=== PATIENT | female | born 1955 | race Caucasian/White ===

== ENCOUNTER → 2016-12-06 | Outpatient (CLI) | payer BC, OTHER ==
--- NOTE | 2016-12-07 13:01 | MAM ---
EXAM DESCRIPTION: Screening Mammogram, bilateral CLINICAL HISTORY: 61 yearsFemaleS[age]ENING. Previous hysterectomy. Hormone replacement more than five years ago. Benign left breast biopsy. COMPARISON: Digital screening bilateral examination 10/15/2013. No prior reports available. TECHNIQUE: Bilateral CC and MLO projection full-field images, digital screening mammographic technique. CAD was utilized. FINDINGS: The breast parenchymal density pattern is: Scattered areas of fibroglandular density. No skin thickening or nipple retraction there is a focal asymmetry or mass density in the upper outer quadrant of the anterior third of the right breast are stable. Bilateral solitary microcalcifications. Left axillary lymph node. Small mass density with diffuse calcification in the anterior third of the lower inner quadrant of the left breast near the nipple. Most likely a degenerating fibroadenoma. Bilateral skin moles indicated by skin markers. No new focal density over stellate mass, no new focal asymmetry , and no suspicious microcalcifications laterally. Stable mammograms compared to September 2013. IMPRESSION: BI-RADS CATEGORY: 2 - BENIGN FINDINGS. FOLLOW UP: Routine digital bilateral screening, one year interval from November 2016. Written communication explaining the findings and follow-up, will be mailed to the patient and referring health care provider. According to the [employer], yearly mammograms are recommended starting at age 40 and continuing as long as a woman is in good health. Any breast change noted on a breast self-exam should be reported promptly to the patient's healthcare provider. Breast MRI is recommended for women with an approximately 20-25% or greater lifetime risk of breast cancer, including women with a strong family history of breast or ovarian cancer and women who have been treated for Hodgkin's disease. A negative mammographic report should not delay tissue diagnosis in patients with significant clinical history or physical findings. Extremely dense breast tissue limits the sensitivity of digital mammography. Electronically signed by: Jeet Shukla MD 12/07/2016 12:59 PM CDT Workstation: [id number]
== END | disposition home or self-care (01) ==
LOC: MAMMO 14:47
PROVIDERS: ATTEND Family Medicine
DX: Z12.31 Encounter for screening mammogram for malignant neoplasm of breast (principal)

== ENCOUNTER 2019-12-20 10:08 | Emergency (ER) | payer SELFPAY ==
--- NOTE | 2019-12-20 10:18 | ED.PDOC ---
History of Present Illness - General Time Seen by Provider: 12/20/19 10:11 - History of Present Illness Initial Comments: Pleasant 64 yo F comes in with the c/c of left hip pain. 9 weeks ago was trying to move a mattress and kicked it and developed low left back pain. no issues with urine or bowel no numbness. pain is burning. has tried tylenol, naproxen and ibuprofen without benefit. Also got steroid shot at her pcp office, but pain continues. Antalgic gait, but no weakness. states the pain got worse over the last 24 hours so son brought her in for evaluation. pain is burning in nature. no weakness. does have hx of L5 bulging disc. No new injury. Denies fever, chills, dysuria. no abdominal pain or chest pain. Allergies/Adverse Reactions: Allergies Sulfa Antibiotics Adverse Reaction (Verified 12/20/19 10:20) Review of Systems - Review of Systems Constitutional: Denies: diaphoresis, fever, malaise EENTM: Denies: eye pain, double vision Respiratory: Denies: cough, orthopnea, short of breath, stridor Cardiology: Denies: chest pain, edema, palpitations, syncope Gastrointestinal/Abdominal: Denies: abdominal pain, constipation, diarrhea, nausea, vomiting Genitourinary: Denies: discharge, dysuria Musculoskeletal: States: back pain, muscle pain. Denies: joint pain, joint swelling, muscle stiffness Skin: Denies: dryness, rash Neurological: Denies: headache, numbness, paresthesia, tingling, tremors, weakness Endocrine: Denies: excessive sweating, intolerance to cold, intolerance to heat, unexplained weight gain, unexplained weight loss Hematologic/Lymphatic: Denies: blood clots, easy bleeding, easy bruising All other Systems: Reviewed and Negative Physical Exam - Physical Exam General Appearance: Alert, Well Developed, Well Groomed, Well Hydrated, Well Nourished, Other - uncomfortale, antalgic gait Eyes, Ears, Nose, Throat Exam: PERRL/EOMI, normal ENT inspection, TMs normal Neck Exam: non-tender, full range of motion, normal alignment, normal inspection Cardiovascular/Respiratory: regular rate, rhythm, normal peripheral pulses, no JVD, normal breath sounds, no respiratory distress Peripheral Pulses: radial,right: 2+, radial,left: 2+, dorsalis pedis,right: 2+, dorsalis pedis,left: 2+ Gastrointestinal/Abdominal: normal bowel sounds, non tender, soft, no o rganomegaly Back Exam: normal inspection, no CVA tenderness, no vertebral tenderness, other - pain with elevation of extended leg, worsens burning. Extremity Exam: no evidence of injury, normal range of motion, other - 5/5 muscle strength, DTR 2+ patellar michael Neurologic: machine finisher II-XII nml as tested, no motor/sensory deficits, alert, normal mood/affect, oriented x 3, abnormal gait Skin Exam: normal color, warm/dry Progress - Progress Progress: no midline tenderness. Patient given norco 5/325. Lumbar xray showed stenosis, pelvic and hip xray showed no fracture but significant OA throughout. The data reviewed when caring for this patient included: nurse notes etc. The history and assessments from nurses notes were reviewed and considered, and the patient's home medication list was also reviewed and considered. My assessment and the results of testing completed here in the ED were discussed with the patient and son. Pain improved with medication. All questions were answered, and they express understanding of my assessment and the plan. They have been instructed to return if their symptoms worsen, and have been asked to follow up with their primary care physician to recheck today's presenting complaint. my billing code is [id number] 12/20/19 17:42 12/20/19 17:47 Departure - Departure Clinical Impression: Osteoarthritis, Sciatic nerve pain Time of Disposition: 11:18 Disposition: Discharge to Home or Self Care Condition: Good Departure Forms: ED Discharge - Pt. Copy, Patient Portal Self Enrollment Instructions: Sciatica, Sciatica Exercises, Radiculopathy Activity: other - ambulate as tolerate Referrals: Brayan Hill III, MD [Primary Care Provider] - 1-2 Weeks Additional Instructions: gabapentin 100 mg QID prn pain
[2019-12-20] MEDS ORDERED: HYDROCOD/APAP 5/325 (ER DISP) #3 TAB PO ONE (10:19)
[2019-12-20 10:20] VITALS: TEMP 97.7
[2019-12-20] MEDS ORDERED: HYDROcodone 5MG/APAP 325MG 1 EA TAB PO ONE (10:23)
--- NOTE | 2019-12-20 10:54 | RAD ---
EXAM: Hip,Left 2 Views (accession [id number]), Pelvis,2 or More Views (accession [id number]) CLINICAL INDICATION: Left hip pain COMPARISON: There is no previous study for comparison. FINDINGS: 3 views of the pelvis and 2 views of the left hip reveal no acute fracture or dislocation. There are moderate degenerative changes of both hips. The osseous structures are otherwise unremarkable. IMPRESSION: Moderate degenerative changes of both hips. Electronically signed by: Wade Hayes MD 12/20/2019 10:53 AM CDT
--- NOTE | 2019-12-20 10:55 | RAD ---
EXAM: Hip,Left 2 Views (accession [id number]), Pelvis,2 or More Views (accession [id number]) CLINICAL INDICATION: Left hip pain COMPARISON: There is no previous study for comparison. FINDINGS: 3 views of the pelvis and 2 views of the left hip reveal no acute fracture or dislocation. There are moderate degenerative changes of both hips. The osseous structures are otherwise unremarkable. IMPRESSION: Moderate degenerative changes of both hips. Electronically signed by: Wade Hayes MD 12/20/2019 10:53 AM CDT
--- NOTE | 2019-12-20 11:12 | RAD ---
EXAM: Lumbar Spine 3 Views CLINICAL INDICATION: Low back pain. COMPARISON: There is no previous study for comparison. FINDINGS: Three views of the lumbar spine reveal no fracture, compression deformity, or subluxation. There is moderate disc space narrowing at L2-L3, L3-L4, and L4-L5. No focal bone lesions are seen. IMPRESSION: Moderate degenerative changes in the lumbar spine. Electronically signed by: Wade Hayes MD 12/20/2019 11:10 AM CDT
[2019-12-20 11:17] VITALS: BP 188/101; O2SAT 97
== END 2019-12-20 11:57 | disposition home or self-care (01) ==
LOC: ER 10:08
DX: M16.0 Bilateral primary osteoarthritis of hip (principal); M54.42 Lumbago with sciatica, left side; I10 Essential (primary) hypertension; M48.061 Spinal stenosis, lumbar region without neurogenic claudication; Z88.2 Allergy status to sulfonamides